=== PATIENT | male | born 1980 | race Caucasian/White ===

== ENCOUNTER 2024-07-12 10:12 | Outpatient (OUT) | payer OTHER, SELFPAY ==
--- NOTE | 2024-07-12 10:20 | US_ITS ---
The [address] [address] Patient Name: LURDES WORTHY MRN: [id number] date: 1980 Sex: M Assigned Patient Location: US Current Patient Location: Accession/Order Number: [id number] Exam Date: 07/12/2024 10:22 Report Date: 07/13/2024 07:28 At the request of: DAVID DUPREE Procedure: US thyroid EXAMINATION: US thyroid HISTORY: Nontoxic Multinodular Goiter COMPARISON: No relevant comparison available. TECHNIQUE: Sonographic images of the thyroid gland were obtained. FINDINGS: The right thyroid lobe measures 3.7 x 1.9 x 1.3 cm. Single nodule. Nodule 1:0.7 x 0.5 x 0.7 cm. Solid, hyperechoic, tall, smooth margins, no calcifications. TR 4 The thyroid isthmus measures 2.6 mm. No focal nodule The left thyroid lobe is normal in size, contour and echotexture with no focal nodules measuring 3.7 x 1.53 cm. Inferior to the left thyroid lobe is a 1 cm hyperechoic area possibly a parathyroid gland US/US thyroid IMPRESSION: 0.7 cm right thyroid TR 4 nodule TI-RADS: The [employer] TI-RADS committee's white paper recommendations for thyroid lesions classified as TR4 (moderately suspicious) are listed below: > 1.0 cm. Follow-up ultrasound in 1, 2, 3, and 5 years. > 1.5 cm. FNA. J. Am [employer] 2017;14:[id number]. Electronically authenticated by: KAREN LY Date: 07/13/2024 07:28
== END 2024-07-12 10:13 | disposition home or self-care (01) ==
LOC: US 10:12
PROVIDERS: Visit Provider Otolaryngology
DX: E04.2 Nontoxic multinodular goiter (principal)
CPT/HCPCS: 76536

== ENCOUNTER 2024-11-21 10:03 | Inpatient (IN) | payer OTHER, SELFPAY ==
[2024-11-21 10:10] VITALS: BP 117/82; PULSE 96; TEMP 36.7; O2SAT 96; BMI 37.1
--- NOTE | 2024-11-21 10:30 | ECG_ITS ---
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 Measurements Intervals [place] Rate: 85 P: 66 MD: 180 QRS: 54 QRSD: 102 T: 68 QT: 358 QTc: 401 Interpretive Statements 1100 Sinus rhythm [address] & Twave abnormality 9130 borderline ECG Compared to ECG 02/12/2021 23:38:24 ST (T wave) deviation now present Electronically Signed On 11-21-2024 12:15:34 EDT by DIANDRA WU M.D.
--- NOTE | 2024-11-21 10:30 | ED_ITS ---
HPI HPI - General Adult General Chief complaint: Weakness Stated complaint: WEAKNESS Time Seen by Provider: 11/21/24 10:18 Source: patient Mode of arrival: walk-in History of Present Illness HPI narrative: 44-year-old male presents for polyuria, polydipsia, and generalized weakness. He seems to have had these symptoms for several days and perhaps a week. He has noticed his vision was off the bed so he went to the eye doctor and they did not find anything wrong. He does not have a personal history of diabetes but his father was recently diagnosed with it. No fever or cough or abdominal pain or vomiting. Related Data Home Medications ?Medication ?Instructions ?Recorded ?Confirmed carvedilol 25 mg tablet mg 11/21/24 hydrochlorothiazide 12.5 mg tablet mg 11/21/24 paroxetine HCl 20 mg tablet mg PO 11/21/24 potassium chloride 10 mEq meq PO 11/21/24 tablet,extended release(part/cryst) valsartan 160 mg tablet mg 11/21/24 Allergies Allergy/AdvReac Type Severity Reaction Status Date / Time Penicillins Allergy Unknown Verified 11/21/24 10:10 Opioid HPI Opioid Management Most Recent Opioid Data: No Data to Display Review of Systems ROS Narrative A ten point review of systems is negative except as noted above. PFSH PFSH Social History Little interest or pleasure in doing things: not at all Feeling down, depressed, or hopeless: not at all Exam Narrative Exam Narrative: Nurses note and vital signs reviewed and patient is not hypoxic. General: The patient appears well and in no apparent distress. Patient is resting comfortably on cart. Skin: Warm, dry, no pallor noted. There is no rash noted. Head: Normocephalic, atraumatic Eye: Normal conjunctiva, no drainage Ears, Nose, Mouth, and Throat: oral mucosa is mildly dry. Nares patent. Cardiovascular: Regular Rate and Rhythm Respiratory: Patient is in no distress, no accessory muscle use, lungs are clear to auscultation, no wheezing, rales or rhonchi Back: non-tender GI: Soft and nontender Musculoskeletal: The patient has no evidence of calf tenderness, no pitting edema, symmetrical pulses noted bilaterally Neurological: A&O, normal speech Psychiatric: Cooperative Constitutional Vital Signs, click to edit/add: Last Vital Signs Temp 98.0 F 11/21/24 10:10 Pulse 96 H 11/21/24 10:10 Resp 16 11/21/24 10:10 BP 117/82 11/21/24 10:10 Pulse Ox 96 11/21/24 10:10 O2 Del Method Room Air 11/21/24 10:10 Course Vital Signs Vital signs: Vital Signs Temperature 98.0 F 11/21/24 10:10 Pulse Rate 96 H 11/21/24 10:10 Respiratory Rate 16 11/21/24 10:10 Blood Pressure 117/82 11/21/24 10:10 Pulse Oximetry 96 11/21/24 10:10 Oxygen Delivery Method Room Air 11/21/24 10:10 Temperature 98.0 F 11/21/24 10:10 Pulse Rate 96 H 11/21/24 10:10 Respiratory Rate 16 11/21/24 10:10 Blood Pressure 117/82 11/21/24 10:10 Pulse Oximetry 96 11/21/24 10:10 Oxygen Delivery Method Room Air 11/21/24 10:10 Medical Decision Making MDM Narrative Medical decision making narrative: Blood sugars found to be 1062. He was given IV fluids and IV insulin. VBG pH is normal and acetone is negative. He is being admitted treatment diagnosis and disposition were discussed with the patient Differential Diagnosis Differential Diagnosis: Hyperglycemia, dehydration Lab Data Lab results reviewed: Yes I reviewed the patient's lab results Labs: Lab Results 11/21/24 11/21/24 11/21/24 Range/Units 10:20 10:35 11:19 WBC 8.2 (4.0-11.0) 10^3/uL RBC 4.63 L (4.70-6.10) 10^6/uL Hgb 14.5 (14.0-18.0) g/dL Hct 41.6 L (42.0-54.0) % MCV 89.8 (80.0-94.0) fL MCH 31.3 (25.9-34.0) pg MCHC 34.9 (29.9-35.2) g/dL RDW 12.0 (11.0-15.0) % Plt Count 295 (150-450) 10^3/uL MPV 12.1 (9.5-13.5) fL Neut % (Auto) 62.9 (43.0-75.0) % Lymph % (Auto) 23.9 (20.5-60.0) % [place] % (Auto) 9.3 (1.7-12.0) % Eos % (Auto) 2.8 (0.9-7.0) % Baso % (Auto) 0.9 (0.2-2.0) % Neut # (Auto) 5.2 (1.4-6.5) 10^3/uL Lymph # (Auto) 2.0 (1.2-3.8) 10^3/uL [place] # (Auto) 0.8 (0.3-0.8) 10^3/uL Eos # (Auto) 0.2 (0.0-0.7) 10^3/uL Baso # (Auto) 0.1 (0.0-0.1) 10^3/uL Abs Immat Gran (auto) 0.02 (0.00-0.03) 10^3/uL Imm/Tot Granulo (auto) 0.2 (0.0-0.5) % VBG pH 7.434 H (7.330-7.430) VBG pCO2 45.0 (40.0-52.0) mmHg Sodium 117 L* (136-145) mmol/L Potassium 4.8 (3.5-5.1) mmol/L Chloride 79 L* (98-107) mmol/L Carbon Dioxide 30.0 (21.0-32.0) mmol/L Anion Gap 12.8 BUN 26.0 H (7.0-18.0) mg/dL Creatinine 1.95 H (0.70-1.30) mg/dL Est GFR ( Amer) 45 L (>=60 mL/min/1.73m^2) Est GFR (Non-Af Amer) 37 L (>=60 mL/min/1.73m^2) BUN/Creatinine Ratio 13.3 Glucose 1062 H* (74-106) mg/dL Calcium 9.2 (8.5-10.1) mg/dL Urine Color Lt. yellow (YELLOW) Urine Clarity Clear (CLEAR) Urine pH 6.0 (5.0-9.0) Ur Specific Pep <=1.005 A (1.005-1.025) Urine Protein Negative (NEG/TRACE) mg/dL Urine Glucose (UA) >=1000 A (NEGATIVE) mg/dL Urine Ketones Negative (NEGATIVE) mg/dL Urine Occult Blood Negative (NEGATIVE) Urine Nitrite Negative (NEGATIVE) Urine Bilirubin Negative (NEGATIVE) Urine Urobilinogen 0.2 (0.2-1.0) EU/dL Ur Leukocyte Esterase Negative (NEGATIVE) Acetone, Qual Negative (NEGATIVE) ECG Data Attestation: I personally reviewed and interpreted this ECG as follows: (EKG on my interpretation shows sinus rhythm with a rate of 85 and no acute change) Critical Care Time Critical Care Time Critical Care Time: Yes Total Critical Care Time: 35 Attestation: Due to the high probability of sudden and clinically significant deterioration in the patient's condition he/she required the highest level of my preparedness to intervene urgently I provided critical care time including documentation time, medication orders and management, reevaluation, vital sign assessment, ordering and reviewing of lab tests, ordering and reviewing of x-ray studies, and admission orders. Aggregate critical care time is 35 minutes including only time during which I was engaged in work directly related to his/her care and did not include time spent treating other patients simultaneously. Discharge Plan Discharge Chief Complaint: Weakness Clinical Impression: Hyperglycemia, Diabetes mellitus, new onset Patient Disposition: Admitted As Inpatient Time of Disposition Decision: 11:30 Condition: Fair
[2024-11-21] MEDS: 0.9 % SODIUM CHLORIDE 1,000 ML 1000 ML IV ×2 (10:35→11:53)
[2024-11-21 10:37] LABS: Basophils Absolute Auto 0.1 10^3/uL (0.0-0.1); Basophils Percent Auto 0.9 % (0.2-2.0); Eosinophils Absolute Auto 0.2 10^3/uL (0.0-0.7); Eosinophils Percent Auto 2.8 % (0.9-7.0); Hematocrit 41.6 % (42.0-54.0); Hemoglobin 14.5 g/dL (14.0-18.0); Immature Granulocytes Abs Auto 0.02 10^3/uL (0.00-0.03); Immature Granulocytes Pct Auto 0.2 % (0.0-0.5); Lymphocytes Percent Auto 23.9 % (20.5-60.0); Mean Corpuscular HGB Conc 34.9 g/dL (29.9-35.2); Mean Corpuscular Hemoglobin 31.3 pg (25.9-34.0); Mean Corpuscular Volume 89.8 fL (80.0-94.0); Mean Platelet Volume 12.1 fL (9.5-13.5); Monocytes Absolute Auto 0.8 10^3/uL (0.3-0.8); Monocytes Percent Auto 9.3 % (1.7-12.0); Neutrophils Absolute Auto 5.2 10^3/uL (1.4-6.5); Neutrophils Percent Auto 62.9 % (43.0-75.0); Platelet Count 295 10^3/uL (150-450); Red Blood Count 4.63 10^6/uL (4.70-6.10); White Blood Count 8.2 10^3/uL (4.0-11.0)
[2024-11-21 10:47] LABS: Anion Gap 12.8; BUN Creatinine Ratio 13.3; Calcium 9.2 mg/dL (8.5-10.1); Estimated GFR (African America 45 (>=60 mL/min/1.73m^2); Estimated GFR (Non-African Ame 37 (>=60 mL/min/1.73m^2); Potassium 4.8 mmol/L (3.5-5.1)
[2024-11-21 10:50] LABS: pH VBG 7.434 (7.330-7.430)
[2024-11-21 10:51] LABS: Sodium 117 mmol/L (136-145)
[2024-11-21 10:52] LABS: Chloride 79 mmol/L (98-107); Glucose 1062 mg/dL (74-106)
[2024-11-21 11:01] LABS: Acetone NEGATIVE (NEGATIVE)
[2024-11-21] MEDS: INSULIN REGULAR, HUMAN (100 UNIT/ML) 10 ML MDV 10 UNIT IV (11:19)
[2024-11-21 11:26] LABS: Bilirubin Urine NEGATIVE (NEGATIVE); Blood Urine NEGATIVE (NEGATIVE); Clarity Urine CLEAR (CLEAR); Color Urine LT. YELLOW (YELLOW); Glucose Urine UA >=1000 mg/dL (NEGATIVE); Ketones Urine NEGATIVE (NEGATIVE); Leukocyte Esterase Urine NEGATIVE (NEGATIVE); Nitrite Urine NEGATIVE (NEGATIVE); Protein Urine NEGATIVE (NEG/TRACE); Specific Gravity Urine <=1.005 (1.005-1.025); Urobilinogen Urine 0.2 EU/dL (0.2-1.0)
[2024-11-21 11:38] LABS: Bacteria Urine NONE SEEN #/HPF (NONE SEEN); Cast Seen? NONE SEEN #/LPF (NONE SEEN); Crystals Seen? None Seen #/HPF (None Seen); Mucus Urine NONE SEEN (NONE SEEN); RBC Urine NONE SEEN #/HPF (0-2); Squamous Epithelial Cell Urine NONE SEEN #/LPF (NONE/RARE); Urine Culture Indicated NO; WBC Urine NONE SEEN #/HPF (NONE SEEN)
[2024-11-21 12:15] LABS: Glucose 825 mg/dL (74-106)
--- NOTE | 2024-11-21 12:40 | P.HP_ITS ---
HPI H&P: HPI History of Present Illness Chief complaint: WEAKNESS,HYPERGLYCEMIA NEW ONSET DIABETES Narrative: Patient presented to the emergency room with increasing weakness, polydipsia, polyuria, found of sugar over thousand When I saw patient up in the medical surgical floor having already been treated for the last 6 hours, feeling improved, no specific complaint, denies chest pain shortness of breath lightheadedness nausea vomiting Opioid HPI Opioid Management Most Recent Pain and Opioid Data: Last Pain Assessment 11/21/24 17:00 Last ORT Total Score 3 11/21/24 12:50 11/21/24 Last ORT Risk Category Low Risk 11/21/24 12:50 11/21/24 Review of Systems ROS Status of ROS 10 or more systems reviewed and unremark able except as noted in history and below PFSH PFS Medical History (Updated 11/21/24 @ 14:01 by Heydi Murphy RN) Asthma ?J45.909 - Unspecified asthma, uncomplicated (ICD-10) Chronic GERD ?K21.9 - Gastro-esophageal reflux disease without esophagitis (ICD-10) Hypertension ?I10 - Essential (primary) hypertension (ICD-10) Anxiety ?F41.9 - Anxiety disorder, unspecified (ICD-10) Surgical History (Updated 11/21/24 @ 14:01 by Heydi Murphy RN) History of placement of ear tubes ?Z96.22 - Myringotomy tube(s) status (ICD-10) History of adenoidectomy ?Z90.89 - Acquired absence of other organs (ICD-10) History of tonsillectomy ?Z90.89 - Acquired absence of other organs (ICD-10) Family History (Updated 11/21/24 @ 13:19 by Heydi Murphy RN) Grandfather Family history of myocardial infarction Family history of CHF (congestive heart failure) Family history of cancer Father Family history of cancer Family history of diabetes mellitus Grandmother Family history of diabetes mellitus Social History (Updated 11/21/24 @ 13:19 by Heydi Murphy RN) Within the past year, how often did you have a drink containing alcohol: never Score interpretation: A score less than 4 is consistent with normal alcohol consumption. Smoking status: Never smoker Non-prescribed substance use: denies use Highest level of school completed/degree received: high school graduate Little interest or pleasure in doing things: several days Feeling down, depressed, or hopeless: not at all Meds Home Medications and Allergies Home Medications ?Medication ?Instructions ?Recorded ?Confirmed ?Type carvedilol 25 mg tablet 25 mg PO BID 11/21/24 11/21/24 History hydrochlorothiazide 12.5 mg tablet 12.5 mg PO DAILY 11/21/24 11/21/24 History omeprazole 20 mg capsule,delayed 20 mg PO DAILY 11/21/24 11/21/24 History release paroxetine HCl 20 mg tablet 20 mg PO .QHS 11/21/24 11/21/24 History potassium chloride 10 mEq 10 meq PO DAILY 11/21/24 11/21/24 History tablet,extended release(part/cryst) valsartan 160 mg tablet 160 mg PO BID 11/21/24 11/21/24 History Allergies Allergy/AdvReac Type Severity Reaction Status Date / Time banana Allergy Mild Unknown Verified 11/21/24 14:03 mushroom Allergy Mild Unknown Verified 11/21/24 14:03 Penicillins Allergy Unknown Verified 11/21/24 10:10 orange AdvReac Mild Unknown Verified 11/21/24 14:03 Exam Constitutional Vital Signs, click to edit/add: Last Vital Signs Temp 98.0 F 11/21/24 10:10 Pulse 96 H 11/21/24 10:10 Resp 16 11/21/24 10:10 BP 117/82 11/21/24 10:10 Pulse Ox 96 11/21/24 10:10 O2 Del Method Room Air 11/21/24 10:10 Documenting provider has reviewed patient's vital signs: yes Common normals: no apparent distress Respiratory Common normals: normal respiratory effort Cardio Common normals: regular rate and regular rhythm GI Common normals: Normal to inspection, nondistended, normoactive bowel sounds present and soft to palpation Results Labs Labs: Short CBC 11/21/24 Range/Units 10:20 WBC 8.2 (4.0-11.0) 10^3/uL Hgb 14.5 (14.0-18.0) g/dL Hct 41.6 L (42.0-54.0) % Plt Count 295 (150-450) 10^3/uL BMP 11/21/24 11/21/24 10:20 11:57 Sodium 117 L* Potassium 4.8 Chloride 79 L* Carbon Dioxide 30.0 BUN 26.0 H Creatinine 1.95 H Glucose 1062 H* 825 H* Calcium 9.2 Urine 11/21/24 Range/Units 11:19 Urine Color Lt. yellow (YELLOW) Urine Clarity Clear (CLEAR) Urine pH 6.0 (5.0-9.0) Ur Specific [place] <=1.005 A (1.005-1.025) Urine Protein Negative (NEG/TRACE) mg/dL Urine Glucose (UA) >=1000 A (NEGATIVE) mg/dL ABG ABG results: 11/21/24 10:35 VBG pH 7.434 H VBG pCO2 45.0 Assessment and Plan Assessment and Plan (1) Diabetes mellitus, new onset: (2) Hyperglycemia: (3) Hypertension: (4) Chronic GERD: Plan Admission findings: Sinus tachycardia, hyponatremia, acute kidney injury (baseline creatinine of 1 patient creatinine of 1.95 which is 195% above baseline, resulting in stage I acute kidney injury) severe hyperglycemia with sugar over thousand New onset diabetes mellitus with acute severe hyperglycemia resulting in acute severe hyponatremia, no acidosis, negative ketones so no DKA osmolality is pendi ng but likely nonketotic hyperosmolar syndrome is a possibility, aggressive fluid resuscitation will continue with subcu insulin, started patient on oral antidiabetic medications, so far tolerating Hyponatremia-this is likely secondary to the hyperglycemia, maintain IV fluids Acute kidney injury stage I-IV fluid resuscitation Hypertension-continue with home medications GERD continue with home medications Admission status: Severe hyperglycemia severe hyponatremia secondary to new onset diabetes mellitus with likely nonketotic hyperosmolar syndrome, with a sugar over thousand highly likely medically necessary treatment will span 2 midnights start patient off as inpatient status
[2024-11-21 13:15] LABS: Alanine Aminotransferase 73 U/L (16-63); Albumin Globulin Ratio 1.1; Albumin Level 3.5 g/dL (3.4-5.0); Alkaline Phosphatase 144 U/L (46-116); Aspartate Amino Transferase 34 U/L (15-37); Bilirubin Direct 0.1 mg/dL (0.0-0.2); Bilirubin Total 0.5 mg/dL (0.2-1.0); Globulin 3.3 g/dL; Total Protein 6.8 g/dL (6.4-8.2)
[2024-11-21] MEDS: LACTATED RINGER'S SOLUTION 1,000 ML 150 ML IV ×2 (13:19→20:29)
[2024-11-21 13:20] LABS: Lactate/Lactic Acid 1.9 mmol/L (0.4-2.0)
[2024-11-21] MEDS: GLIMEPIRIDE 2 MG TABLET PO (13:23)
[2024-11-21 13:38] VITALS: BP 106/66; PULSE 82; TEMP 36.4; O2SAT 97; BMI 37.8
[2024-11-21 14:25] LABS: Glucose 685 mg/dL (74-106)
[2024-11-21 14:35] VITALS: O2SAT 97
[2024-11-21] MEDS: INSULIN ASPART 300 UNIT/3 ML PEN 15 UNIT SUBQ (14:41)
[2024-11-21 16:30] LABS: Glucometer 533 mg/dL (74-106)
[2024-11-21 17:00] VITALS: BP 110/75; PULSE 74; O2SAT 95
[2024-11-21] MEDS: INSULIN ASPART 300 UNIT/3 ML PEN SUBQ ×2 (17:19→21:38)
[2024-11-21] MEDS: CARVEDILOL 25 MG TABLET PO (17:21)
[2024-11-21] MEDS: METFORMIN HCL 500 MG TABLET PO (17:22)
[2024-11-21 18:45] VITALS: BMI 37.8
[2024-11-21 19:53] VITALS: BP 91/57; PULSE 75; TEMP 37.1; O2SAT 92
[2024-11-21 20:03] LABS: Glucometer 415 mg/dL (74-106)
--- NOTE | 2024-11-21 20:22 | DIETREC ---
Diabetic diet education provided. Recommend 2200 kcal CCD diet.
[2024-11-21 20:25] VITALS: O2SAT 93
[2024-11-21] MEDS: PAROXETINE HCL 20 MG TABLET PO (21:39)
[2024-11-22 00:06] VITALS: BP 110/72; PULSE 73; TEMP 36.6; O2SAT 94
[2024-11-22 00:13] LABS: Glucometer 367 mg/dL (74-106)
[2024-11-22] MEDS: LACTATED RINGER'S SOLUTION 1,000 ML 150 ML IV (02:46)
[2024-11-22 04:52] VITALS: BP 125/83; PULSE 75; TEMP 36.6; O2SAT 92
[2024-11-22 05:03] LABS: Glucometer 319 mg/dL (74-106)
[2024-11-22] MEDS: PANTOPRAZOLE SODIUM 40 MG TABLET.DR 20 MG PO (06:01)
[2024-11-22 06:24] LABS: Basophils Absolute Auto 0.1 10^3/uL (0.0-0.1); Basophils Percent Auto 0.9 % (0.2-2.0); Eosinophils Absolute Auto 0.3 10^3/uL (0.0-0.7); Eosinophils Percent Auto 4.7 % (0.9-7.0); Hematocrit 36.1 % (42.0-54.0); Hemoglobin 13.1 g/dL (14.0-18.0); Immature Granulocytes Abs Auto 0.01 10^3/uL (0.00-0.03); Immature Granulocytes Pct Auto 0.1 % (0.0-0.5); Lymphocytes Absolute Auto 2.5 10^3/uL (1.2-3.8); Lymphocytes Percent Auto 35.2 % (20.5-60.0); Mean Corpuscular HGB Conc 36.3 g/dL (29.9-35.2); Mean Platelet Volume 11.7 fL (9.5-13.5); Monocytes Absolute Auto 0.6 10^3/uL (0.3-0.8); Monocytes Percent Auto 8.3 % (1.7-12.0); Neutrophils Absolute Auto 3.6 10^3/uL (1.4-6.5); Neutrophils Percent Auto 50.8 % (43.0-75.0); Platelet Count 223 10^3/uL (150-450); Red Cell Distribution Width 11.9 % (11.0-15.0)
[2024-11-22 06:37] LABS: C Reactive Protein <0.50 mg/dL (<=0.50)
[2024-11-22 07:21] LABS: Albumin Globulin Ratio 1.1; Albumin Level 3.2 g/dL (3.4-5.0); Alkaline Phosphatase 118 U/L (46-116); Anion Gap 12.1; BUN Creatinine Ratio 21.3; Bilirubin Total 0.4 mg/dL (0.2-1.0); Calcium 8.4 mg/dL (8.5-10.1); Carbon Dioxide 28.7 mmol/L (21.0-32.0); Chloride 96 mmol/L (98-107); Estimated GFR (African America >60 (>=60 mL/min/1.73m^2); Estimated GFR (Non-African Ame >60 (>=60 mL/min/1.73m^2); Globulin 2.8 g/dL; Glucose 337 mg/dL (74-106); Potassium 3.8 mmol/L (3.5-5.1); Sodium 133 mmol/L (136-145)
[2024-11-22 07:23] LABS: Alanine Aminotransferase 54 U/L (16-63); Aspartate Amino Transferase 37 U/L (15-37)
[2024-11-22 07:37] LABS: Glucometer 346 mg/dL (74-106)
[2024-11-22] MEDS: INSULIN ASPART 300 UNIT/3 ML PEN SUBQ (07:48)
--- NOTE | 2024-11-22 08:10 | CM.NOTE ---
Rounds made with Dr. Whitten, pt will discharge to home today. RN will do teaching regarding home insulin. Discussed with pt and Dr. Whitten regarding outpatient education with Ramone ReardonRN with [facility] Diabetes self-management. Order signed by Dr. Whitten. Pt will f/u with Dr. Wetzel.
--- NOTE | 2024-11-22 08:15 | P.DS_ITS ---
DS: Providers Provider Date of admission: 11/21/24 12:39 Primary care physician: HARMAN ADAIR Consults: 11/21/24 12:47 Consult to Pharmacy Routine Consulting Provider: Reason for consultation: Please [facility] [place] me when Med Rec is Updated Has provider been notified: No DS: Diagnosis Discharge Diagnosis (1) Diabetes mellitus, new onset: (2) Hyperglycemia: (3) Hypertension: (4) Chronic GERD: Plan Admission findings: Sinus tachycardia, hyponatremia, acute kidney injury (baseline creatinine of 1 patient creatinine of 1.95 which is 195% above baseline, resulting in stage I acute kidney injury) severe hyperglycemia with sugar over thousand New onset diabetes mellitus with acute severe hyperglycemia resulting in acute severe hyponatremia, no acidosis, negative ketones so no DKA osmolality is pending but likely nonketotic hyperosmolar syndrome is a possibility, aggressive fluid resuscitation will continue with subcu insulin, started patient on oral antidiabetic medications, so far tolerating Hyponatremia-this is likely secondary to the hyperglycemia, maintain IV fluids Acute kidney injury stage I-IV fluid resuscitation Hypertension-continue with home medications GERD continue with home medications Admission status: Severe hyperglycemia severe hyponatremia secondary to new onset diabetes mellitus with likely nonketotic hyperosmolar syndrome, with a sugar over thousand highly likely medically necessary treatment will span 2 midnights start patient off as inpatient status ? DS: Summary Hospital Course Hospital Course: Seen and evaluated emergency room increasing weakness, found to have a sugar of over 1000, severe hyponatremia, significant elevation in creatinine, patient was given IV insulin in the ER, upon medical surgical floor given significant hydration over the first 24 hours, his sugar gradually decreased, sugar still 300 this morning but patient overall feels much improved, will review labs if sodium has stabilized and he is able to eat and sugars remained stable he can be discharged to home in improving condition. Medications see list. Follow-up with PCP in outpatient diabetes Time Spent with Patient Time attestation: Total time spent providing and/or coordinating discharge services: Exam Constitutional Vital Signs, click to edit/add: Last Vital Signs Temp 97.9 F 11/22/24 04:52 Pulse 75 11/22/24 04:52 Resp 18 11/22/24 04:52 BP 125/83 11/22/24 04:52 Pulse Ox 92 L 11/22/24 04:52 O2 Del Method Room Air 11/22/24 04:52 DS: Data Data Completed and Pending Labs on day of discharge: Labs from last 24 hours 0411/22/24 11/22/24 07:35 06:00 04:57 WBC 7.0 RBC 4.10 L Hgb 13.1 L Hct 36.1 L MCV 88.0 MCH 32.0 MCHC 36.3 H RDW 11.9 Plt Count 223 MPV 11.7 Neut % (Auto) 50.8 Lymph % (Auto) 35.2 [place] % (Auto) 8.3 Eos % (Auto) 4.7 Baso % (Auto) 0.9 Neut # (Auto) 3.6 Lymph # (Auto) 2.5 [place] # (Auto) 0.6 Eos # (Auto) 0.3 Baso # (Auto) 0.1 Abs Immat Gran (auto) 0.01 Imm/Tot Granulo (auto) 0.1 VBG pH VBG pCO2 Sodium 133 L Potassium 3.8 Chloride 96 L Carbon Dioxide 28.7 Anion Gap 12.1 BUN 27.0 H Creatinine 1.27 Est GFR ( Amer) >60 Est GFR (Non-Af Amer) >60 BUN/Creatinine Ratio 21.3 Glucose 337 H Lactate Calcium 8.4 L Total Bilirubin 0.4 Direct Bilirubin AST 37 ALT 54 Alkaline Phosphatase 118 H C-Reactive Protein <0.50 Total Protein 6.0 L Albumin 3.2 L Globulin 2.8 Albumin/Globulin Ratio 1.1 Urine Color Urine Clarity Urine pH Ur Specific [place] Urine Protein Urine Glucose (UA) Urine Ketones Urine Occult Blood Urine Nitrite Urine Bilirubin Urine Urobilinogen Ur Leukocyte Esterase Urine RBC Urine WBC Ur Squamous Epith Cells Urine Crystals Urine Bacteria Urine Casts Urine Mucus Ur Culture Indicated? Acetone, Qual POC Glucose 346 H 319 H 11/22/24 11/21/24 11/21/24 00:10 19:58 16:29 WBC RBC Hgb Hct MCV MCH MCHC RDW Plt Count MPV Neut % (Auto) Lymph % (Auto) [place] % (Auto) Eos % (Auto) Baso % (Auto) Neut # (Auto) Lymph # (Auto) [place] # (Auto) Eos # (Auto) Baso # (Auto) Abs Immat Gran (auto) Imm/Tot Granulo (auto) VBG pH VBG pCO2 Sodium Potassium Chloride Carbon Dioxide Anion Gap BUN Creatinine Est GFR ( Amer) Est GFR (Non-Af Amer) BUN/Creatinine Ratio Glucose Lactate Calcium Total Bilirubin Direct Bilirubin AST ALT Alkaline Phosphatase C-Reactive Protein Total Protein Albumin Globulin Albumin/Globulin Ratio Urine Color Urine Clarity Urine pH Ur Specific [place] Urine Protein Urine Glucose (UA) Urine Ketones Urine Occult Blood Urine Nitrite Urine Bilirubin Urine Urobilinogen Ur Leukocyte Esterase Urine RBC Urine WBC Ur Squamous Epith Cells Urine Crystals Urine Bacteria Urine Casts Urine Mucus Ur Culture Indicated? Acetone, Qual POC Glucose 367 H 415 H 533 H* 11/21/24 11/21/24 11/21/24 13:57 11:57 11:19 WBC RBC Hgb Hct MCV MCH MCHC RDW Plt Count MPV Neut % (Auto) Lymph % (Auto) [place] % (Auto) Eos % (Auto) Baso % (Auto) Neut # (Auto) Lymph # (Auto) [place] # (Auto) Eos # (Auto) Baso # (Auto) Abs Immat Gran (auto) Imm/Tot Granulo (auto) VBG pH VBG pCO2 Sodium Potassium Chloride Carbon Dioxide Anion Gap BUN Creatinine Est GFR ( Amer) Est GFR (Non-Af Amer) BUN/Creatinine Ratio Glucose 685 H* 825 H* Lactate Calcium Total Bilirubin 0.5 Direct Bilirubin 0.1 AST 34 ALT 73 H Alkaline Phosphatase 144 H C-Reactive Protein Total Protein 6.8 Albumin 3.5 Globulin 3.3 Albumin/Globulin Ratio 1.1 Urine Color Lt. yellow Urine Clarity Clear Urine pH 6.0 Ur Specific [place] <=1.005 A Urine Protein Negative Urine Glucose (UA) >=1000 A Urine Ketones Negative Urine Occult Blood Negative Urine Nitrite Negative Urine Bilirubin Negative Urine Urobilinogen 0.2 Ur Leukocyte Esterase Negative Urine RBC None seen Urine WBC None seen Ur Squamous Epith Cells None seen Urine Crystals None seen Urine Bacteria None seen Urine Casts None seen Urine Mucus None seen Ur Culture Indicated? No Acetone, Qual POC Glucose 11/21/24 11/21/24 10:35 10:20 WBC 8.2 RBC 4.63 L Hgb 14.5 Hct 41.6 L MCV 89.8 MCH 31.3 MCHC 34.9 RDW 12.0 Plt Count 295 MPV 12.1 Neut % (Auto) 62.9 Lymph % (Auto) 23.9 [place] % (Auto) 9.3 Eos % (Auto) 2.8 Baso % (Auto) 0.9 Neut # (Auto) 5.2 Lymph # (Auto) 2.0 [place] # (Auto) 0.8 Eos # (Auto) 0.2 Baso # (Auto) 0.1 Abs Immat Gran (auto) 0.02 Imm/Tot Granulo (auto) 0.2 VBG pH 7.434 H VBG pCO2 45.0 Sodium 117 L* Potassium 4.8 Chloride 79 L* Carbon Dioxide 30.0 Anion Gap 12.8 BUN 26.0 H Creatinine 1.95 H Est GFR ( Amer) 45 L Est GFR (Non-Af Amer) 37 L BUN/Creatinine Ratio 13.3 Glucose 1062 H* Lactate 1.9 Calcium 9.2 Total Bilirubin Direct Bilirubin AST ALT Alkaline Phosphatase C-Reactive Protein Total Protein Albumin Globulin Albumin/Globulin Ratio Urine Color Urine Clarity Urine pH Ur Specific [place] Urine Protein Urine Glucose (UA) Urine Ketones Urine Occult Blood Urine Nitrite Urine Bilirubin Urine Urobilinogen Ur Leukocyte Esterase Urine RBC Urine WBC Ur Squamous Epith Cells Urine Crystals Urine Bacteria Urine Casts Urine Mucus Ur Culture Indicated? Acetone, Qual Negative POC Glucose Discharge Plan Discharge Disposition: Home, Self-Care Condition: Fair Discharge Medications: New metformin 500 mg Tablet 500 mg PO BIDWM Qty: 60 11RF glimepiride 2 mg Tablet 2 mg PO QD Qty: 30 11RF Continued carvedilol 25 mg tablet 25 mg PO BID paroxetine HCl 20 mg tablet 20 mg PO .QHS valsartan 160 mg tablet 160 mg PO BID potassium chloride 10 mEq tablet,ER particles/crystals 10 meq PO DAILY hydrochlorothiazide 12.5 mg tablet 12.5 mg PO DAILY omeprazole 20 mg capsule,delayed release(DR/EC) 20 mg PO DAILY Rx Instructions: at bedtime Activity: increase activity as tolerated Diet: diabetic diet Print Language: [place] Patient Instructions: Diabetic Hyperglycemia (DC), Diabetes and Nutrition (DC), Diabetes and Exercise (DC), How to Check your Blood Sugar (DC), Type 2 Diabetes Management for Adults (DC) Forms: Portal Instructions Follow Up Appointments: November 28 @ 9:30am with DOUG Moctezuma [phone]
[2024-11-22] MEDS: CARVEDILOL 25 MG TABLET PO (08:39)
[2024-11-22] MEDS: LOSARTAN POTASSIUM 50 MG TABLET 100 MG PO (08:39)
[2024-11-22] MEDS: METFORMIN HCL 500 MG TABLET PO (08:39)
[2024-11-22] MEDS: GLIMEPIRIDE 2 MG TABLET PO (08:40)
[2024-11-22 09:00] VITALS: BP 150/92; PULSE 73; TEMP 36.9; O2SAT 93
--- NOTE | 2024-11-22 09:27 | CM.NOTE ---
Referral sent to [facility] Ramone Reardon RN for diabetic education. Updated pt on discharge plan and that [facility] will reach out to him to schedule appt.
--- NOTE | 2024-11-22 09:35 | CM.NOTE ---
Discussed with pt about diabetes management, exercise, diet and continued education (referral sent to [facility]). Pt verbalizes understanding, pt provided with packet of continued reading material and contact number for Ramone Reardon RN (nurse informatics educator).
[2024-11-22 09:43] LABS: Estimated Average Glucose 298 mg/dL
--- NOTE | 2024-11-23 13:53 | CM.DCFOLLOWU ---
1st attempt 11/23/24, no answer
--- NOTE | 2024-11-26 12:39 | CM.DCFOLLOWU ---
2nd attempt 11/26/24, no answer
--- NOTE | 2024-11-27 14:11 | CM.DCFOLLOWU ---
Person spoke with:patient How are you feeling?well, at work now. Blood sugars down to 118, hoping under control now How is your pain?none Did you understand your discharge instructions?yes Do you have any questions about your discharge instructions?no Were you given any prescriptions at discharge? yes Were you able to get your prescriptions filled?yes Do you understand how to take your medications as ordered? yes Do you have any questions about your follow up appointment and do you plan to keep your follow up appointment? no questions, follow up tomorrow Is there anything else that you would like to discuss?no Questions/Comments/Concerns/Other:none
== END 2024-11-22 10:40 | disposition home or self-care (01) | DRG 638 ==
LOC: ER 11:30 → MS 12:47
PROVIDERS: Admitting Provider Family Medicine; Emergency Provider Emergency Medicine; PCP Internal Medicine; Visit Provider Family Medicine
DX: E11.00 Type 2 diabetes mellitus with hyperosmolarity without nonketotic hyperglycemic-hyperosmolar coma (NKHHC) (principal); E87.1 Hypo-osmolality and hyponatremia; N17.9 Acute kidney failure, unspecified; K21.9 Gastro-esophageal reflux disease without esophagitis; J45.909 Unspecified asthma, uncomplicated; I10 Essential (primary) hypertension; F41.9 Anxiety disorder, unspecified; R00.0 Tachycardia, unspecified; Z79.84 Long term (current) use of oral hypoglycemic drugs
CPT/HCPCS: 36415; 71045; 80048; 80053; 80076; 81001; 82009; 82800; 82947; 82948; 83036; 83605; 83930; 85025; 86140; 93005; 94761; 99285; J1817